=== PATIENT | male | born 1975 | race Caucasian/White ===

== ENCOUNTER 2023-03-07 09:04 | Emergency (ER) | payer SELFPAY | END 2023-03-07 09:23 | disposition home or self-care (01) | LOC: BURERS 09:04 | DX: L01.00 Impetigo, unspecified (principal); L03.818 Cellulitis of other sites; S60.519A Abrasion of unspecified hand, initial encounter; X58.XXXA Exposure to other specified factors, initial encounter | CPT/HCPCS: 99283 ==